=== PATIENT | male | born 1940 | race Caucasian/White ===

== ENCOUNTER → 2024-03-22 09:36 | Outpatient (REF) | payer MEDICARE, OTHER, SELFPAY ==
[2024-03-22 14:42] LABS: Blood Urea Nitrogen 19 mg/dl (9-20); Calcium 9.4 mg/dl (8.4-10.2); Carbon Dioxide 26 mmol/L (22-30); Chloride 106 mmol/L (98-107); Glucose 133 mg/dl (70-99); Potassium 4.6 mmol/L (3.5-5.1); Sodium 139 mmol/L (135-145); eGFR > 60.00
== END ==
LOC: REG 09:36
PROVIDERS: ATTENDING PHYSICIAN Internal Medicine Gastroenterology; FAMILY PHYSICIAN Family Medicine
DX: R59.1 Generalized enlarged lymph nodes (principal)
CPT/HCPCS: 36415; 80048

== ENCOUNTER → 2024-03-26 10:01 | Outpatient (REF) | payer MEDICARE, OTHER, SELFPAY | LOC: RAD 10:01 | PROVIDERS: ATTENDING PHYSICIAN Internal Medicine Gastroenterology; FAMILY PHYSICIAN Family Medicine | DX: R59.1 Generalized enlarged lymph nodes (principal) | CPT/HCPCS: 74170; Q9967 ==

== ENCOUNTER → 2024-04-19 14:57 | Outpatient (REF) | payer MEDICARE, OTHER, SELFPAY | LOC: RAD 14:57 | PROVIDERS: ATTENDING PHYSICIAN Internal Medicine Interventional Cardiology; FAMILY PHYSICIAN Family Medicine | DX: R09.89 Other specified symptoms and signs involving the circulatory and respiratory systems (principal) | CPT/HCPCS: 93880 ==

== ENCOUNTER → 2024-08-05 09:07 | Outpatient (REF) | payer MEDICARE, OTHER, SELFPAY | LOC: RCS 09:07 | PROVIDERS: ATTENDING PHYSICIAN Internal Medicine Interventional Cardiology; FAMILY PHYSICIAN Family Medicine | DX: I25.10 Atherosclerotic heart disease of native coronary artery without angina pectoris (principal); I35.0 Nonrheumatic aortic (valve) stenosis; Z95.2 Presence of prosthetic heart valve | CPT/HCPCS: 93306 ==

== ENCOUNTER → 2024-10-11 08:26 | Outpatient (REF) | payer MEDICARE, OTHER, SELFPAY ==
[2024-10-11 10:35] LABS: ALT (SGPT) 38 U/L (0-50); AST (SGOT) 32 U/L (17-59); Albumin 4.7 g/dl (3.5-5.0); Alkaline Phosphatase 129 U/L (38-126); Blood Urea Nitrogen 22 mg/dl (9-20); Calcium 9.8 mg/dl (8.4-10.2); Carbon Dioxide 24 mmol/L (22-30); Chloride 103 mmol/L (98-107); Glucose 157 mg/dl (70-99); Potassium 4.5 mmol/L (3.5-5.1); Sodium 145 mmol/L (135-145); Total Bilirubin 0.3 mg/dl (0.2-1.3); Total Protein 7.9 g/dl (6.3-8.2); eGFR 59.63
== END ==
LOC: REG 08:26
PROVIDERS: ATTENDING PHYSICIAN Internal Medicine Gastroenterology
DX: R59.1 Generalized enlarged lymph nodes (principal)
CPT/HCPCS: 36415; 80053

== ENCOUNTER → 2024-10-18 12:10 | Outpatient (REF) | payer MEDICARE, OTHER, SELFPAY | LOC: RAD 12:10 | PROVIDERS: ATTENDING PHYSICIAN Internal Medicine Gastroenterology; FAMILY PHYSICIAN Family Medicine | DX: R59.1 Generalized enlarged lymph nodes (principal) | CPT/HCPCS: 74170; Q9967 ==

== ENCOUNTER → 2025-08-30 10:11 | Outpatient (REF) | payer MEDICARE, OTHER, SELFPAY | LOC: RCS 10:11 | PROVIDERS: ATTENDING PHYSICIAN Internal Medicine Interventional Cardiology | DX: I35.1 Nonrheumatic aortic (valve) insufficiency (principal) | CPT/HCPCS: 93306 ==